=== PATIENT | female | born 1945 | race Caucasian/White ===

== ENCOUNTER 2017-01-20 06:52 | Inpatient (IN) | payer MEDICARE, OTHER ==
[~2017-01-20] VITALS: Ht 162.6 cm; Wt 66.7 kg
[~2017-01-20 06:52] MED LIST: AMIT100T PO; ESTR0.5T PO; HYDR25TA9 PO; LISI40TA PO; NAPR-682 PO; OMEG1CAP6 PO
[2017-01-20 07:28] LABS: BASO % 0 % (0-3); EOS % 0 % (0-3); HEMATOCRIT 32.5 % (36.0-47.0); HEMOGLOBIN 11.2 g/dL (12.0-15.5); LYMPH # 1.1 x10^3/uL (1.0-4.8); LYMPH % 17 % (24-48); MEAN CORPUSCULAR HEMOGLOBIN 34 pg (25-35); MEAN CORPUSCULAR HGB CONC 35 g/dL (31-37); MEAN CORPUSCULAR VOLUME 97 fL (79-100); MONO % 6 % (0-9); NEUT % 76 % (31-73); PLATELET COUNT 255 x10^3/uL (140-400); RED BLOOD COUNT 3.33 x10^6/uL (3.50-5.40); WHITE BLOOD COUNT 6.4 x10^3/uL (4.0-11.0)
[2017-01-20 07:39] LABS: PROTHROMBIN TIME PATIENT 12.4 SEC (11.7-14.0)
[2017-01-20 07:43] LABS: CALCIUM 9.1 mg/dL (8.5-10.1); CREATININE 0.8 mg/dL (0.6-1.0); GFR 70.5; POTASSIUM 3.4 mmol/L (3.5-5.1)
[2017-01-20 07:43] LABS: BILIRUBIN,URINE NEGATIVE (NEG); GLUCOSE,URINE NEGATIVE (NEG); NITRITE,URINE NEGATIVE (NEG); PH,URINE 5.5; PROTEIN,URINE NEGATIVE (NEG-TRACE); UROBILINOGEN,URINE 0.2 mg/dL (0.2 mg/dL)
[2017-01-20] MEDS ORDERED: IV NORMAL SALINE 1000ML BAG 1,000 ML IV ONE (07:45)
[2017-01-20 07:49] LABS: ALBUMIN 3.7 g/dL (3.4-5.0); MAGNESIUM 1.5 mg/dL (1.8-2.4); TOTAL BILIRUBIN 0.2 mg/dL (0.2-1.0); TOTAL PROTEIN 7.4 g/dL (6.4-8.2)
[2017-01-20 07:57] LABS: CKMB MASS 0.9 ng/mL (0.0-3.6); CREATINE KINASE 65 U/L (26-192)
--- NOTE | 2017-01-20 07:59 | RAD ---
Portable chest, 01/20/2017: History: Fall, altered level of consciousness The heart size and pulmonary vascularity are normal. There is tortuosity of the thoracic aorta. No pulmonary infiltrates are seen. There is no evidence of pleural fluid or pneumothorax. IMPRESSION: 1. Aortic ectasia. 2. No acute cardiopulmonary abnormality is detected.
[2017-01-20 08:06] LABS: BACTERIA,URINE MANY /HPF (0-FEW); RBC,URINE 0 /HPF (0-2); SQUAMOUS EPITHELIAL CELL,UR FEW /LPF; WBC,URINE 0 /HPF (0-4)
--- NOTE | 2017-01-20 08:09 | RAD ---
CT of the head without contrast, 01/20/2017: History: Hypertension, weakness There is mild cerebral atrophy. There are minimal deep white matter lucencies bilaterally compatible with chronic ischemic change. The ventricles are at the upper limits of normal in size. There is no shift of the midline structures. There is no evidence of acute intracranial hemorrhage or mass effect. IMPRESSION: 1. Minimal bilateral deep white matter lucencies compatible with chronic ischemic change. 2. No acute intracranial abnormality is detected. PQRS Compliance Statement: One or more of the following individualized dose reduction techniques were utilized for this examination: 1. Automated exposure control 2. Adjustment of the mA and/or kV according to patient size 3. Use of iterative reconstruction technique
[2017-01-20 08:21] LABS: BARBITURATES NEG (NEG); BENZODIAZEPINES NEG (NEG); CANNABINOIDS NEG (NEG); COCAINE NEG (NEG); METHADONE NEG (NEG); OPIATES NEG (NEG); PHENCYCLIDINE NEG (NEG)
--- NOTE | 2017-01-20 09:34 | PHYS DOC ---
Past Medical History Past Medical History: Hypertension Additional Past Medical Histor: HRT, sleep disorder Past Surgical History: Cholecystectomy, Hysterectomy Additional Past Surgical Histo: partial hyster Alcohol Use: Heavy Additional Information: 3 glasses of wine per day Drug Use: None Adult General Chief Complaint Chief Complaint: NEAR SYNCOPE HPI HPI Patient is a 71 year old female brought to the ED by EMS from home after a fall. Patient is confused, the history is from EMS and the patient's boyfriend, who arrived a little bit later. EMS report that the patient had gotten up and gone to the bathroom and then fell in the bedroom on the way back to the bathroom. Patient's boyfriend told me that he could hear that she wasn't walking right, it sounds like he could hear her stumbling or dragging her feet. She was walking really slow. She fell to the floor and he was not able to get her up. She was too weak. She was also confused. He called EMS. EMS stated that the patient was very reluctant to, and they had argued with her quite a bit, they really wanted her to come in because she seemed weak and altered. She insisted on getting dressed so they were on scene quite a while. On arrival, the patient is confused. She was talking about pushing about for the elevator, EMS stated she lives in a home and there is no elevator. She stated that she had left something "upstairs", EMS state she was never upstairs. She is somewhat argumentative. In fact, as EMS moved her from their cart onto the ED bed, she pointed to the TV and stated "I need the remote for that". She is a poor historian at this time. PCP Dr. Rowley; the patient was able to tell me the name of her doctor Review of Systems Review of Systems Caveat: The patient is confused and I don't believe she is able to offer accurate review of systems. Current Medications Current Medications Current Medications Medications (Trade) Dose Ordered Sig/Syed Start Time Stop Time Status Last Admin Dose Admin Sodium Chloride 1,000 ml @ 1,000 mls/hr 1X ONCE 01/20/17 07:45 01/20/17 08:44 DC 01/20/17 07:45 1,000 MLS/HR Allergies Allergies Allergies Coded Allergies Type Severity Reaction Last Updated Verified No Known Drug Allergies 01/20/17 No Physical Exam Physical Exam Constitutional: Well developed, well nourished, alert but confused, warm and dry , no acute distress HENT: Normocephalic, atraumatic, bilateral external ears normal, oropharynx dry , nose normal. [] Eyes: conjunctiva normal, no discharge. [] Neck: Normal range of motion, no stridor. [] Cardiovascular:Heart rate regular rhythm, no murmur [] Lungs & Thorax: Bilateral breath sounds clear to auscultation [] Abdomen: Bowel sounds normal, soft, no tenderness, no masses, no pulsatile masses. [] Skin: Warm, dry, no erythema, no rash. [] Extremities: No cyanosis, no clubbing, ROM intact, no edema. Right knee has some mild to moderate swelling and joint effusion, not warm, not red, mildly tender to palpation. Neurologic: Alert, normal motor function, no focal deficits noted. House Steward/Stewardess 5 over 5 and equal bilaterally. Lower extremity strength 5 over 5 and equal bilaterally. No facial asymmetry. On arrival, the patient's speech is somewhat slurred but her mouth is very dry. She has difficulty with commands so some evaluation is difficult. NIH SS score 2 She was given 1 for mild confusion and 1 for slurred speech Current Patient Data Vital Signs Vital Signs Date Time Temp Pulse Resp B/P (MAP) Pulse Ox O2 Delivery O2 Flow Rate FiO2 01/20/17 08:00 108 96 01/20/17 06:59 98.1 18 139/80 (99) Room Air 98.1 Lab Values Laboratory Tests Test 01/20/17 07:05 01/20/17 07:25 White Blood Count 6.4 x10^3/uL (4.0-11.0) Red Blood Count 3.33 x10^6/uL (3.50-5.40) L Hemoglobin 11.2 g/dL (12.0-15.5) L Hematocrit 32.5 % (36.0-47.0) L Mean Corpuscular Volume 97 fL (79-100) Mean Corpuscular Hemoglobin 34 pg (25-35) Mean Corpuscular Hemoglobin Concent 35 g/dL (31-37) Red Cell Distribution Width 13.0 % (11.5-14.5) Platelet Count 255 x10^3/uL (140-400) Neutrophils (%) (Auto) 76 % (31-73) H Lymphocytes (%) (Auto) 17 % (24-48) L Monocytes (%) (Auto) 6 % (0-9) Eosinophils (%) (Auto) 0 % (0-3) Basophils (%) (Auto) 0 % (0-3) Neutrophils # (Auto) 4.9 x10^3uL (1.8-7.7) Lymphocytes # (Auto) 1.1 x10^3/uL (1.0-4.8) Monocytes # (Auto) 0.4 x10^3/uL (0.0-1.1) Eosinophils # (Auto) 0.0 x10^3/uL (0.0-0.7) Basophils # (Auto) 0.0 x10^3/uL (0.0-0.2) Prothrombin Time 12.4 SEC (11.7-14.0) Prothrombin Time INR 1.0 (0.8-1.1) PTT 33 SEC (24-38) Sodium Level 133 mmol/L (136-145) L Potassium Level 3.4 mmol/L (3.5-5.1) L Chloride Level 96 mmol/L (98-107) L Carbon Dioxide Level 24 mmol/L (21-32) Anion Gap 13 (6-14) Blood Urea Nitrogen 16 mg/dL (7-20) Creatinine 0.8 mg/dL (0.6-1.0) Estimated GFR (Cockcroft-Gault) 70.5 BUN/Creatinine Ratio 20 (6-20) Glucose Level 109 mg/dL (70-99) H Calcium Level 9.1 mg/dL (8.5-10.1) Magnesium Level 1.5 mg/dL (1.8-2.4) L Total Bilirubin 0.2 mg/dL (0.2-1.0) Aspartate Amino Transferase (AST) 20 U/L (15-37) Alanine Aminotransferase (ALT) 21 U/L (14-59) Alkaline Phosphatase 82 U/L (46-116) Creatine Kinase 65 U/L (26-192) Creatine Kinase MB (Mass) 0.9 ng/mL (0.0-3.6) Creatine Kinase MB Relative Index % (0-4) Troponin I Quantitative < 0.017 ng/mL (0.000-0.055) HS-Qun-X-Type Natriuretic Peptide 88 pg/mL (0-124) Total Protein 7.4 g/dL (6.4-8.2) Albumin 3.7 g/dL (3.4-5.0) Albumin/Globulin Ratio 1.0 (1.0-1.7) Ethyl Alcohol Level < 10 mg/dL (0-10) Urine Collection Type Unknown Urine Color Yellow Urine Clarity Clear Urine pH 5.5 Urine Specific [place] 1.015 Urine Protein Negative mg/dL (NEG-TRACE) Urine Glucose (UA) Negative mg/dL (NEG) Urine Ketones (Stick) Negative mg/dL (NEG) Urine Blood Negative (NEG) Urine Nitrite Negative (NEG) Urine Bilirubin Negative (NEG) Urine Urobilinogen Dipstick 0.2 mg/dL (0.2 mg/dL) Urine Leukocyte Esterase Negative (NEG) Urine RBC 0 /HPF (0-2) Urine WBC 0 /HPF (0-4) Urine Squamous Epithelial Cells Few /LPF Urine Bacteria Many /HPF (0-FEW) Urine Opiates Screen Neg (NEG) Urine Methadone Screen Neg (NEG) Urine Barbiturates Neg (NEG) Urine Phencyclidine Screen Neg (NEG) Urine Amphetamine/Methamphetamine Neg (NEG) Urine Benzodiazepines Screen Neg (NEG) Urine Cocaine Screen Neg (NEG) Urine Cannabinoids Screen Neg (NEG) Urine Ethyl Alcohol Pos (NEG) Laboratory Tests 01/20/17 07:05 Laboratory Tests 01/20/17 07:05 EKG EKG 12-lead EKG read by me. Sinus rhythm. Heart rate 108. Sinus tachycardia. There are no acute ST or T wave changes indicative of ischemia or infarction. No [id number][] Radiology/Procedures Radiology/Procedures One view portable chest x-ray read by the radiologist. No acute findings. CT scan of the head read by the radiologist. Chronic ischemic change. No acute abnormality.[] Course & Med Decision Making Course & Med Decision Making Pertinent Labs and Imaging studies reviewed. (See chart for details) 71-year-old female brought by EMS from home after a fall and demonstrating some confusion without focal findings on arrival. Patient does appear to be dehydrated, her mouth is very dry. We will check some labs, CT, chest x-ray, give her a liter of IV fluids. Labs are all relatively unremarkable. Serum alcohol is less than 10 but her UDS was positive for alcohol, but she is not acutely intoxicated. Urinalysis negative for UTI. CT scan negative for acute findings. I went back to revisited the patient after her liter of fluids. Her boyfriend is at the bedside and contribute significantly to the history. The patient seems much less confused. She is no longer slurring her speech. She doesn't remember what happened this morning, and continues to be argumentative about whether or not she fell, what happened, how she got here, and certainly would prefer not to be admitted. However, I'm concerned that the patient had an episode of significant confusion related to a fall and although better, her boyfriend states she is not at her mental baseline. She may have had a TIA or CVA, although she demonstrates improvement at this time. The patient likely woke with her symptoms, since she got up and went to the bathroom and was coming back to bed when her fall occurred. There is no history to suggest that it started just before she came in, we are not able to establish a timeline, so we were not able to give consideration for thrombolytics. I discussed the patient with Dr. Dasilva, hospitalist. She will admit the patient. I wrote bridge orders. [] Dragon Disclaimer Dragon Disclaimer This electronic medical record was generated, in whole or in part, using a voice recognition dictation system. Departure Departure Impression: Primary Impression: TIA (transient ischemic attack) Additional Impressions: Confusion Weakness Fall Disposition: 09 ADMITTED INPATIENT Admitting Physician: Roxanna Dasilva Condition: IMPROVED Referrals: NATALIE ROWLEY MD (PCP) Problem Qualifiers CAROLE SANDERS MD Jan 20, 2017 09:34
[2017-01-20 11:03] VITALS: BP 130/75
[2017-01-20] MEDS ORDERED: TERB250T PO (11:18)
[2017-01-20] MEDS ORDERED: ATOR20TA58 PO (11:18)
[2017-01-20] MEDS ORDERED: ASPI-482 PO (11:18)
--- NOTE | 2017-01-20 11:51 | EKG ---
[facility] [address] [place] [address] Test Date: 2017-01-20 Test Time: 07:14:24 Pat Name: RAULITO DOS SANTOS Department: Room: [facility] Gender: F Customs Compliance Director: JEFFREY : 1945 Requested By: CAROLE SANDERS Order Number: [id number] Reading MD: Reymundo Baxter Measurements Intervals [place] Rate: 108 P: 90 HI: 202 QRS: 40 QRSD: 88 T: 13 QT: 326 QTc: 441 Interpretive Statements SINUS TACHYCARDIA PROLONGED HI INTERVAL QRS(T) CONTOUR ABNORMALITY CONSIDER INFERIOR MYOCARDIAL DAMAGE ABNORMAL ECG RI6.01 No previous ECG available for comparison Electronically Signed On 02-08-2017 17:05:00 CDT by Reymundo Baxter
[2017-01-20 12:17] VITALS: BP 130/75
--- NOTE | 2017-01-20 14:40 | PDOC2 ---
NEUROLOGY CONSULT Date of Admission Date of Admission Full Report Dictated DATE: 01/20/17 TIME: 14:38 Current Medications Current Medications Current Medications Sodium Chloride 1,000 ml @ 1,000 mls/hr 1X ONCE IV Last administered on t 07:45; Start 01/20/17 at 07:45; Stop 01/20/17 at 08:44; Status DC Active Scripts Active Reported Atorvastatin Calcium 20 Mg Tablet 20 Mg PO HS Lamisil (Terbinafine Hcl) 250 Mg Tablet 1 Tab PO DAILY Aspir 81 (Aspirin) 81 Mg Tablet.dr 1 Tab PO DAILY Fish Oil 1,000 Mg Capsule ([place]-3 Fatty Acids/Fish Oil) 1 Each Capsule 1 Each PO Anaprox Ds (Naproxen Sodium) 550 Mg Tablet 1 Tab PO BID Amitriptyline Hcl 100 Mg Tablet 1 Tab PO QHS Estradiol 0.5 Mg Tablet 0.5 Mg PO Hydrochlorothiazide Tablet (Hydrochlorothiazide) 25 Mg Tablet 1 Tab PO DAILY Lisinopril 40 Mg Tablet 1 Tab PO DAILY Allergies Allergies: Coded Allergies: No Known Drug Allergies (Unverified , 01/20/17) Vitals VITALS Vital Signs Date Time Temp Pulse Resp B/P (MAP) Pulse Ox O2 Delivery O2 Flow Rate FiO2 01/20/17 12:17 97.5 95 16 130/75 (93) 97 Room Air 97.5 Labs Labs Laboratory Tests Test 01/20/17 07:05 01/20/17 07:25 White Blood Count 6.4 x10^3/uL (4.0-11.0) Red Blood Count 3.33 x10^6/uL (3.50-5.40) Hemoglobin 11.2 g/dL (12.0-15.5) Hematocrit 32.5 % (36.0-47.0) Mean Corpuscular Volume 97 fL (79-100) Mean Corpuscular Hemoglobin 34 pg (25-35) Mean Corpuscular Hemoglobin Concent 35 g/dL (31-37) Red Cell Distribution Width 13.0 % (11.5-14.5) Platelet Count 255 x10^3/uL (140-400) Neutrophils (%) (Auto) 76 % (31-73) Lymphocytes (%) (Auto) 17 % (24-48) Monocytes (%) (Auto) 6 % (0-9) Eosinophils (%) (Auto) 0 % (0-3) Basophils (%) (Auto) 0 % (0-3) Neutrophils # (Auto) 4.9 x10^3uL (1.8-7.7) Lymphocytes # (Auto) 1.1 x10^3/uL (1.0-4.8) Monocytes # (Auto) 0.4 x10^3/uL (0.0-1.1) Eosinophils # (Auto) 0.0 x10^3/uL (0.0-0.7) Basophils # (Auto) 0.0 x10^3/uL (0.0-0.2) Prothrombin Time 12.4 SEC (11.7-14.0) Prothromb Time International Ratio 1.0 (0.8-1.1) Activated Partial Thromboplast Time 33 SEC (24-38) Sodium Level 133 mmol/L (136-145) Potassium Level 3.4 mmol/L (3.5-5.1) Chloride Level 96 mmol/L (98-107) Carbon Dioxide Level 24 mmol/L (21-32) Anion Gap 13 (6-14) Blood Urea Nitrogen 16 mg/dL (7-20) Creatinine 0.8 mg/dL (0.6-1.0) Estimated GFR (Cockcroft-Gault) 70.5 BUN/Creatinine Ratio 20 (6-20) Glucose Level 109 mg/dL (70-99) Calcium Level 9.1 mg/dL (8.5-10.1) Magnesium Level 1.5 mg/dL (1.8-2.4) Total Bilirubin 0.2 mg/dL (0.2-1.0) Aspartate Amino Transf (AST/SGOT) 20 U/L (15-37) Alanine Aminotransferase (ALT/SGPT) 21 U/L (14-59) Alkaline Phosphatase 82 U/L (46-116) Creatine Kinase 65 U/L (26-192) Creatine Kinase MB (Mass) 0.9 ng/mL (0.0-3.6) Creatine Kinase MB Relative Index % (0-4) Troponin I Quantitative < 0.017 ng/mL (0.000-0.055) QB-[id number]-[id number]-Type Natriuretic Peptide 88 pg/mL (0-124) Total Protein 7.4 g/dL (6.4-8.2) Albumin 3.7 g/dL (3.4-5.0) Albumin/Globulin Ratio 1.0 (1.0-1.7) Ethyl Alcohol Level < 10 mg/dL (0-10) Urine Collection Type Unknown Urine Color Yellow Urine Clarity Clear Urine pH 5.5 Urine Specific [place] 1.015 Urine Protein Negative mg/dL (NEG-TRACE) Urine Glucose (UA) Negative mg/dL (NEG) Urine Ketones (Stick) Negative mg/dL (NEG) Urine Blood Negative (NEG) Urine Nitrite Negative (NEG) Urine Bilirubin Negative (NEG) Urine Urobilinogen Dipstick 0.2 mg/dL (0.2 mg/dL) Urine Leukocyte Esterase Negative (NEG) Urine RBC 0 /HPF (0-2) Urine WBC 0 /HPF (0-4) Urine Squamous Epithelial Cells Few /LPF Urine Bacteria Many /HPF (0-FEW) Urine Opiates Screen Neg (NEG) Urine Methadone Screen Neg (NEG) Urine Barbiturates Neg (NEG) Urine Phencyclidine Screen Neg (NEG) Urine Amphetamine/Methamphetamine Neg (NEG) Urine Benzodiazepines Screen Neg (NEG) Urine Cocaine Screen Neg (NEG) Urine Cannabinoids Screen Neg (NEG) Urine Ethyl Alcohol Pos (NEG) Laboratory Tests Test 01/20/17 07:05 01/20/17 07:25 White Blood Count 6.4 x10^3/uL (4.0-11.0) Red Blood Count 3.33 x10^6/uL (3.50-5.40) Hemoglobin 11.2 g/dL (12.0-15.5) Hematocrit 32.5 % (36.0-47.0) Mean Corpuscular Volume 97 fL (79-100) Mean Corpuscular Hemoglobin 34 pg (25-35) Mean Corpuscular Hemoglobin Concent 35 g/dL (31-37) Red Cell Distribution Width 13.0 % (11.5-14.5) Platelet Count 255 x10^3/uL (140-400) Neutrophils (%) (Auto) 76 % (31-73) Lymphocytes (%) (Auto) 17 % (24-48) Monocytes (%) (Auto) 6 % (0-9) Eosinophils (%) (Auto) 0 % (0-3) Basophils (%) (Auto) 0 % (0-3) Neutrophils # (Auto) 4.9 x10^3uL (1.8-7.7) Lymphocytes # (Auto) 1.1 x10^3/uL (1.0-4.8) Monocytes # (Auto) 0.4 x10^3/uL (0.0-1.1) Eosinophils # (Auto) 0.0 x10^3/uL (0.0-0.7) Basophils # (Auto) 0.0 x10^3/uL (0.0-0.2) Prothrombin Time 12.4 SEC (11.7-14.0) Prothromb Time International Ratio 1.0 (0.8-1.1) Activated Partial Thromboplast Time 33 SEC (24-38) Sodium Level 133 mmol/L (136-145) Potassium Level 3.4 mmol/L (3.5-5.1) Chloride Level 96 mmol/L (98-107) Carbon Dioxide Level 24 mmol/L (21-32) Anion Gap 13 (6-14) Blood Urea Nitrogen 16 mg/dL (7-20) Creatinine 0.8 mg/dL (0.6-1.0) Estimated GFR (Cockcroft-Gault) 70.5 BUN/Creatinine Ratio 20 (6-20) Glucose Level 109 mg/dL (70-99) Calcium Level 9.1 mg/dL (8.5-10.1) Magnesium Level 1.5 mg/dL (1.8-2.4) Total Bilirubin 0.2 mg/dL (0.2-1.0) Aspartate Amino Transf (AST/SGOT) 20 U/L (15-37) Alanine Aminotransferase (ALT/SGPT) 21 U/L (14-59) Alkaline Phosphatase 82 U/L (46-116) Creatine Kinase 65 U/L (26-192) Creatine Kinase MB (Mass) 0.9 ng/mL (0.0-3.6) Creatine Kinase MB Relative Index % (0-4) Troponin I Quantitative < 0.017 ng/mL (0.000-0.055) [place]-Sfv-[id number]-Type Natriuretic Peptide 88 pg/mL (0-124) Total Protein 7.4 g/dL (6.4-8.2) Albumin 3.7 g/dL (3.4-5.0) Albumin/Globulin Ratio 1.0 (1.0-1.7) Ethyl Alcohol Level < 10 mg/dL (0-10) Urine Collection Type Unknown Urine Color Yellow Urine Clarity Clear Urine pH 5.5 Urine Specific [place] 1.015 Urine Protein Negative mg/dL (NEG-TRACE) Urine Glucose (UA) Negative mg/dL (NEG) Urine Ketones (Stick) Negative mg/dL (NEG) Urine Blood Negative (NEG) Urine Nitrite Negative (NEG) Urine Bilirubin Negative (NEG) Urine Urobilinogen Dipstick 0.2 mg/dL (0.2 mg/dL) Urine Leukocyte Esterase Negative (NEG) Urine RBC 0 /HPF (0-2) Urine WBC 0 /HPF (0-4) Urine Squamous Epithelial Cells Few /LPF Urine Bacteria Many /HPF (0-FEW) Urine Opiates Screen Neg (NEG) Urine Methadone Screen Neg (NEG) Urine Barbiturates Neg (NEG) Urine Phencyclidine Screen Neg (NEG) Urine Amphetamine/Methamphetamine Neg (NEG) Urine Benzodiazepines Screen Neg (NEG) Urine Cocaine Screen Neg (NEG) Urine Cannabinoids Screen Neg (NEG) Urine Ethyl Alcohol Pos (NEG) Assessment/Plan Assessment/Plan Patient is a 71-year-old woman who fell down on her way back from the bathroom in the middle of the night. She's been experiencing more pain of the right knee and attributes the fall to poor balance. It's reported by paramedics and in the emergency room that she was confused. Currently she has diminished attention and concentration which could be encephalopathy from the fall or possibly a nondominant hemisphere stroke. I did not see focal numbness or weakness. She does have impaired balance and gait. CT scan of the brain was not revealing. I will obtain an MRI brain as well as blood work to look into treatable causes of cognitive decline. I'll consult physical therapy. MARCOS COTTO MD Jan 20, 2017 14:40
[2017-01-20 15:08] LABS: FREE T4 0.77 ng/dL (0.76-1.46)
[2017-01-20 15:21] VITALS: BP 113/65
--- NOTE | 2017-01-20 16:26 | PDOC1 ---
History and Physical Date of Admission Date of Admission 01/20/17 Identification/Chief Complaint Chief Complaint fall, confusion Problems: Source Source: Chart review, Patient History of Present Illness History of Present Illness HPI HPI Patient is a 71 year old female brought to the ED by EMS from home after a fall this morning and possible confusion. pt said she got up at about 3am to the bathroom as usually, got out of bathroom , went to bed, then fell 2/2 not seeing well, could not get up, yelled for help and her bf saw her on the floor and helped her back to bed. She denies syncope, she said not sure hit her left head or not, but denies headache, or any neurologic deficit. When they got up later, bf found her confused, not walking right and called EMS. as per ERP, they fought for while and eventually agreed to come to hosp. Pt said her right knee has chronic OA and more pain which cause her cannot walk well. as per ERP, On arrival, the patient is confused. She was talking about pushing about for the elevator, EMS stated she lives in a home and there is no elevator. She stated that she had left something "upstairs", EMS state she was never upstairs. She is somewhat argumentative. In fact, as EMS moved her from their cart onto the ED bed, she pointed to the TV and stated "I need the remote for that" when i saw pt on 6 floor, pt looks not confused, altho poor historian, also has mild aphagia, pt said it is because she has dry mouth. Past Medical History Past Medical History Hypertension Additional Past Medical Histor: HRT, sleep disorder Past Surgical History Past Surgical History: Cholecystectomy, Hysterectomy Family History Family History: Hypertension Social History Smoke: <1 pack per day ALCOHOL: heavy (pt said drinks at lease 3 times a week, denies daily, said only 100cc wine or vodka each time) Current Problem List Problem List Problems Medical Problems: (1) Confusion Status: Acute (2) Fall Status: Acute (3) TIA (transient ischemic attack) Status: Acute (4) Weakness Status: Acute Current Medications Current Medications Current Medications Medications (Trade) Dose Ordered Sig/Syed Start Time Stop Time Status Last Admin Dose Admin Sodium Chloride 1,000 ml @ 1,000 mls/hr 1X ONCE 01/20/17 07:45 01/20/17 08:44 DC 01/20/17 07:45 1,000 MLS/HR Allergies Allergies Allergies Coded Allergies Type Severity Reaction Last Updated Verified No Known Drug Allergies 01/20/17 No ROS Review of System CONSTITUTIONAL: No fever or chills EYES: No recent changes SKIN: No rash or itching CARDIOVASCULAR: No chest pain, syncope, palpitations, or edema RESPIRATORY: No SOB or cough GASTROINTESTINAL: No nausea, vomiting or abdominal pain NEUROLOGICAL: No headaches or weakness ENDOCRINE: No cold or heat intolerance GENITOURINARY: No urgency or frequency of urination MUSCULOSKELETAL: No back pain or joint pain LYMPHATICS: No enlarged lymph nodes PSYCHIATRIC: No anxiety or depression Physical Exam Physical Exam GEN.: No apparent distress. Alert and oriented. HEENT: Head is normocephalic, atraumatic NECK: Supple. LUNGS: Clear to auscultation. HEART: RRR, S1, S2 present. Peripheral pulses intact ABDOMEN: Soft, nontender. Positive bowel sounds. EXTREMITIES: Without any cyanosis. mild aphagia, strength normal and symmetric NEUROLOGIC: Normal speech, normal tone PSYCHIATRIC: Normal affect, normal mood. SKIN: No ulcerations Vitals Vitals Vital Signs Date Time Temp Pulse Resp B/P (MAP) Pulse Ox O2 Delivery O2 Flow Rate FiO2 01/20/17 15:21 98.1 106 16 113/65 (81) 95 98.1 01/20/17 12:17 Room Air Labs Labs Laboratory Tests Test 01/20/17 07:05 01/20/17 07:25 White Blood Count 6.4 x10^3/uL (4.0-11.0) Red Blood Count 3.33 x10^6/uL (3.50-5.40) Hemoglobin 11.2 g/dL (12.0-15.5) Hematocrit 32.5 % (36.0-47.0) Mean Corpuscular Volume 97 fL (79-100) Mean Corpuscular Hemoglobin 34 pg (25-35) Mean Corpuscular Hemoglobin Concent 35 g/dL (31-37) Red Cell Distribution Width 13.0 % (11.5-14.5) Platelet Count 255 x10^3/uL (140-400) Neutrophils (%) (Auto) 76 % (31-73) Lymphocytes (%) (Auto) 17 % (24-48) Monocytes (%) (Auto) 6 % (0-9) Eosinophils (%) (Auto) 0 % (0-3) Basophils (%) (Auto) 0 % (0-3) Neutrophils # (Auto) 4.9 x10^3uL (1.8-7.7) Lymphocytes # (Auto) 1.1 x10^3/uL (1.0-4.8) Monocytes # (Auto) 0.4 x10^3/uL (0.0-1.1) Eosinophils # (Auto) 0.0 x10^3/uL (0.0-0.7) Basophils # (Auto) 0.0 x10^3/uL (0.0-0.2) Prothrombin Time 12.4 SEC (11.7-14.0) Prothromb Time International Ratio 1.0 (0.8-1.1) Activated Partial Thromboplast Time 33 SEC (24-38) Sodium Level 133 mmol/L (136-145) Potassium Level 3.4 mmol/L (3.5-5.1) Chloride Level 96 mmol/L (98-107) Carbon Dioxide Level 24 mmol/L (21-32) Anion Gap 13 (6-14) Blood Urea Nitrogen 16 mg/dL (7-20) Creatinine 0.8 mg/dL (0.6-1.0) Estimated GFR (Cockcroft-Gault) 70.5 BUN/Creatinine Ratio 20 (6-20) Glucose Level 109 mg/dL (70-99) Calcium Level 9.1 mg/dL (8.5-10.1) Magnesium Level 1.5 mg/dL (1.8-2.4) Total Bilirubin 0.2 mg/dL (0.2-1.0) Aspartate Amino Transf (AST/SGOT) 20 U/L (15-37) Alanine Aminotransferase (ALT/SGPT) 21 U/L (14-59) Alkaline Phosphatase 82 U/L (46-116) Creatine Kinase 65 U/L (26-192) Creatine Kinase MB (Mass) 0.9 ng/mL (0.0-3.6) Creatine Kinase MB Relative Index % (0-4) Troponin I Quantitative < 0.017 ng/mL (0.000-0.055) GX-Bmc-V-Type Natriuretic Peptide 88 pg/mL (0-124) Total Protein 7.4 g/dL (6.4-8.2) Albumin 3.7 g/dL (3.4-5.0) Albumin/Globulin Ratio 1.0 (1.0-1.7) Thyroid Stimulating Hormone (TSH) 6.198 uIU/mL (0.358-3.74) Free Thyroxine 0.77 ng/dL (0.76-1.46) Ethyl Alcohol Level < 10 mg/dL (0-10) Urine Collection Type Unknown Urine Color Yellow Urine Clarity Clear Urine pH 5.5 Urine Specific [place] 1.015 Urine Protein Negative mg/dL (NEG-TRACE) Urine Glucose (UA) Negative mg/dL (NEG) Urine Ketones (Stick) Negative mg/dL (NEG) Urine Blood Negative (NEG) Urine Nitrite Negative (NEG) Urine Bilirubin Negative (NEG) Urine Urobilinogen Dipstick 0.2 mg/dL (0.2 mg/dL) Urine Leukocyte Esterase Negative (NEG) Urine RBC 0 /HPF (0-2) Urine WBC 0 /HPF (0-4) Urine Squamous Epithelial Cells Few /LPF Urine Bacteria Many /HPF (0-FEW) Urine Opiates Screen Neg (NEG) Urine Methadone Screen Neg (NEG) Urine Barbiturates Neg (NEG) Urine Phencyclidine Screen Neg (NEG) Urine Amphetamine/Methamphetamine Neg (NEG) Urine Benzodiazepines Screen Neg (NEG) Urine Cocaine Screen Neg (NEG) Urine Cannabinoids Screen Neg (NEG) Urine Ethyl Alcohol Pos (NEG) Laboratory Tests Test 01/20/17 07:05 01/20/17 07:25 White Blood Count 6.4 x10^3/uL (4.0-11.0) Red Blood Count 3.33 x10^6/uL (3.50-5.40) Hemoglobin 11.2 g/dL (12.0-15.5) Hematocrit 32.5 % (36.0-47.0) Mean Corpuscular Volume 97 fL (79-100) Mean Corpuscular Hemoglobin 34 pg (25-35) Mean Corpuscular Hemoglobin Concent 35 g/dL (31-37) Red Cell Distribution Width 13.0 % (11.5-14.5) Platelet Count 255 x10^3/uL (140-400) Neutrophils (%) (Auto) 76 % (31-73) Lymphocytes (%) (Auto) 17 % (24-48) Monocytes (%) (Auto) 6 % (0-9) Eosinophils (%) (Auto) 0 % (0-3) Basophils (%) (Auto) 0 % (0-3) Neutrophils # (Auto) 4.9 x10^3uL (1.8-7.7) Lymphocytes # (Auto) 1.1 x10^3/uL (1.0-4.8) Monocytes # (Auto) 0.4 x10^3/uL (0.0-1.1) Eosinophils # (Auto) 0.0 x10^3/uL (0.0-0.7) Basophils # (Auto) 0.0 x10^3/uL (0.0-0.2) Prothrombin Time 12.4 SEC (11.7-14.0) Prothromb Time International Ratio 1.0 (0.8-1.1) Activated Partial Thromboplast Time 33 SEC (24-38) Sodium Level 133 mmol/L (136-145) Potassium Level 3.4 mmol/L (3.5-5.1) Chloride Level 96 mmol/L (98-107) Carbon Dioxide Level 24 mmol/L (21-32) Anion Gap 13 (6-14) Blood Urea Nitrogen 16 mg/dL (7-20) Creatinine 0.8 mg/dL (0.6-1.0) Estimated GFR (Cockcroft-Gault) 70.5 BUN/Creatinine Ratio 20 (6-20) Glucose Level 109 mg/dL (70-99) Calcium Level 9.1 mg/dL (8.5-10.1) Magnesium Level 1.5 mg/dL (1.8-2.4) Total Bilirubin 0.2 mg/dL (0.2-1.0) Aspartate Amino Transf (AST/SGOT) 20 U/L (15-37) Alanine Aminotransferase (ALT/SGPT) 21 U/L (14-59) Alkaline Phosphatase 82 U/L (46-116) Creatine Kinase 65 U/L (26-192) Creatine Kinase MB (Mass) 0.9 ng/mL (0.0-3.6) Creatine Kinase MB Relative Index % (0-4) Troponin I Quantitative < 0.017 ng/mL (0.000-0.055) JB-Gvr-I-Type Natriuretic Peptide 88 pg/mL (0-124) Total Protein 7.4 g/dL (6.4-8.2) Albumin 3.7 g/dL (3.4-5.0) Albumin/Globulin Ratio 1.0 (1.0-1.7) Thyroid Stimulating Hormone (TSH) 6.198 uIU/mL (0.358-3.74) Free Thyroxine 0.77 ng/dL (0.76-1.46) Ethyl Alcohol Level < 10 mg/dL (0-10) Urine Collection Type Unknown Urine Color Yellow Urine Clarity Clear Urine pH 5.5 Urine Specific [place] 1.015 Urine Protein Negative mg/dL (NEG-TRACE) Urine Glucose (UA) Negative mg/dL (NEG) Urine Ketones (Stick) Negative mg/dL (NEG) Urine Blood Negative (NEG) Urine Nitrite Negative (NEG) Urine Bilirubin Negative (NEG) Urine Urobilinogen Dipstick 0.2 mg/dL (0.2 mg/dL) Urine Leukocyte Esterase Negative (NEG) Urine RBC 0 /HPF (0-2) Urine WBC 0 /HPF (0-4) Urine Squamous Epithelial Cells Few /LPF Urine Bacteria Many /HPF (0-FEW) Urine Opiates Screen Neg (NEG) Urine Methadone Screen Neg (NEG) Urine Barbiturates Neg (NEG) Urine Phencyclidine Screen Neg (NEG) Urine Amphetamine/Methamphetamine Neg (NEG) Urine Benzodiazepines Screen Neg (NEG) Urine Cocaine Screen Neg (NEG) Urine Cannabinoids Screen Neg (NEG) Urine Ethyl Alcohol Pos (NEG) VTE Prophylaxis Ordered VTE Prophylaxis Devices: Yes VTE Pharmacological Prophylaxi: Yes Assessment/Plan Assessment/Plan AMS, confusion mild, seems resolved, 2/2 possible TIA or stroke with mild aphagia now fall right knee pain with OA htn alcoholism likely chronic unsteady gait hypokalemia hypomagnesemia plan: neuro consult brain MRI cont home meds, hold hctz replete K, mag neuro check q4h check vitb12, FA dvt ppx PTOT PAXTON ROGERS MD Jan 20, 2017 16:26
[2017-01-20] MEDS ORDERED: MORPHINE SULFATE 2 MG/ML DISP.SYRIN. IV PRN (16:30)
[2017-01-20] MEDS ORDERED: DOCUSATE SODIUM 100 MG CAPSULE. PO PRN (16:30)
[2017-01-20] MEDS ORDERED: MAGNESIUM SULFATE 2GM 50 ML IV ONE (16:30)
[2017-01-20] MEDS ORDERED: POTASSIUM CHLORIDE 20 MEQ TABLET.ER. PO ONE (16:30)
[2017-01-20] MEDS ORDERED: ONDANSETRON PF 4 MG/2 ML VIAL. IV PRN (16:30)
[2017-01-20] MEDS ORDERED: hydrALAZINE 20 MG/ML VIAL. IVP PRN (16:30)
[2017-01-20] MEDS ORDERED: traMADol 50 MG TABLET PO PRN (16:30)
[2017-01-20] MEDS ORDERED: ACETAMINOPHEN 325 MG TABLET. PO PRN (16:30)
[2017-01-20] MEDS: ENOXAPARIN 40 MG/0.4 ML SYRINGE. SQ SCH ×2 (17:00→17:09)
[2017-01-20] MEDS: FOLIC ACID 1 MG TABLET. PO SCH (17:07)
[2017-01-20] MEDS: LISINOPRIL 40 MG TABLET. PO SCH (17:07)
[2017-01-20] MEDS: THIAMINE 100 MG TABLET. PO SCH (17:07)
[2017-01-20] MEDS: OMEGA-3 FATTY ACIDS/FISH OIL 1,000 MG CAPSULE. PO SCH (17:08)
[2017-01-20] MEDS: TERBINAFINE 250 MG TABLET. PO SCH (17:08)
[2017-01-20] MEDS: ASPIRIN ENTERIC COATED 81 MG TABLET.DR. PO SCH (17:08)
[2017-01-20 19:00] VITALS: BP 127/71
[2017-01-20] MEDS: AMITRIPTYLINE HCL 50 MG TABLET PO SCH (21:39)
[2017-01-20] MEDS: ATORVASTATIN CALCIUM 20 MG TABLET PO SCH (21:39)
[2017-01-20 23:00] VITALS: BP 148/82
[2017-01-21 03:00] VITALS: BP 122/72
[2017-01-21 06:03] LABS: BASO % 1 % (0-3); EOS % 3 % (0-3); HEMATOCRIT 31.3 % (36.0-47.0); HEMOGLOBIN 10.8 g/dL (12.0-15.5); LYMPH # 2.1 x10^3/uL (1.0-4.8); LYMPH % 29 % (24-48); MEAN CORPUSCULAR HEMOGLOBIN 34 pg (25-35); MEAN CORPUSCULAR HGB CONC 34 g/dL (31-37); MEAN CORPUSCULAR VOLUME 98 fL (79-100); MONO % 9 % (0-9); NEUT % 59 % (31-73); PLATELET COUNT 262 x10^3/uL (140-400); RED BLOOD COUNT 3.21 x10^6/uL (3.50-5.40); RED CELL DISTRIBUTION WIDTH 13.3 % (11.5-14.5); WHITE BLOOD COUNT 7.3 x10^3/uL (4.0-11.0)
[2017-01-21 06:42] LABS: CALCIUM 8.6 mg/dL (8.5-10.1); CREATININE 0.9 mg/dL (0.6-1.0); GFR 61.5; POTASSIUM 3.9 mmol/L (3.5-5.1)
[2017-01-21 07:04] VITALS: BP 138/72
--- NOTE | 2017-01-21 07:58 | CONS ---
DATE OF CONSULTATION: 01/20/2017 REFERRING PHYSICIAN: Radha Dasilva M.D. REASON FOR CONSULTATION: TIA with the fall. HISTORY OF PRESENT ILLNESS: The patient is a 71-year-old woman who presented to the Emergency Room at [facility] after she fell on the night. She was brought to the Emergency Department by EMS. She was confused in the Emergency Room. Her significant other with whom she has lived for over 4 years, arrived later to the Emergency Room. She had risen to go to the bathroom in the middle of the night and fell. This occurred on the way back to the bed from the bathroom. He could hear that she was not walking right, sounded like she was stumbling or dragging her feet. Her walking was slow. She fell to the floor and could not get up and was too weak. EMS had to argue with her to get her to come to the hospital. In the Emergency Room, she still appeared confused. She states that her thinking and cognition has been normal. She remembers the fall and she does not believe she had a loss of consciousness. She states for the last 3 or 4 days, her right knee has been very painful and making it difficult to walk. She states she has been on the sleeping medicine for a long time, so this has not changed. She did start an antifungal oral medication a week ago so this is the only change in her regimen. She denies having memory loss or confusion. She does not complain of any headache. She does not complain of any weakness or numbness. PAST MEDICAL HISTORY: 1. Hypertension. 2. Hormone replacement therapy. 3. Sleep disorder for which she is on medicine. 4. Cholecystectomy. 5. Hysterectomy. ALLERGIES: No known allergies to drugs. MEDICATIONS: Prior admission amitriptyline 100 mg at night, aspirin 81 mg, atorvastatin 20 mg, estradiol 0.5 mg, hydrochlorothiazide, lisinopril 40 mg, naproxen sodium 550 mg twice per day, omega 3 fatty acids and Lamisil 250 mg daily. FAMILY HISTORY: Her mother with metastatic lung cancer. Her father with congestive heart failure. One of her brothers at 43 years in a motor vehicle accident, the other at 46 years after he was fatally beaten up. SOCIAL HISTORY: She has been and either or on 4 occasions. She has been with her current boyfriend for 4-5 years. She does drink three glasses of wine nightly. REVIEW OF SYSTEMS: She does not have a headache. She denies any change of vision or hearing. She does not believe she has any cognitive changes. She does not complain of nose or sinus trouble. She has had no trouble with speech or language. She occasionally does seem to swallow things so they go under lungs and she coughs. She has not had chest pain or shortness of breath. There has been no abdominal pain. She does have severe right knee pain which is impairing her walking. She has not had any fever or rash. She does occasionally have constipation or diarrhea, but sometimes her bowels are normal. No genitourinary complaints, but does seem to get up at night once twice to go to the bathroom. She does not complain of any numbness or focal weakness. She does not complain of bruising, bleeding or swelling. She denies any psychiatric concerns. PHYSICAL EXAMINATION: VITAL SIGNS: The blood pressure was 130/75, pulse 95, respirations 16, temperature 97.5 degrees Fahrenheit. Oximetry was 97% on room air. Her weight was 147 pounds, height 64 inches calculated body mass index of 25.2. GENERAL: She was alert and awake: She cooperated fully for the exam. She was oriented to place, month and year. She also knew the date. Attention and concentration did appear intact. She had difficulty grasping the ____ and transferring it to both sides of her body. Example would be rapid alternating movements, [id number] and [id number]. She appeared well groomed and well nourished. Examination of the cranial nerves revealed visual escudero were full to confrontation. Extraocular movements were intact. The eyes were conjugate. Pursuit movements were smooth and saccadic eye movements were without dysmetria. Pupils were 3 mm and reactive. Funduscopic exam did not reveal papilledema, exudate or hemorrhage. There were spontaneous venous pulsations present. Facial sensation was intact bilaterally. The muscles of mastication and facial expression were powerful symmetrically. Hearing was intact to finger rub. The palate arches symmetrically and the tongue was midline with full range of motion. Sternocleidomastoid and trapezius were powerful. Muscle bulk and tone was normal. There was no arm drift or abnormal movement. Power was fairly full and symmetric in the upper and lower extremities. Reflexes were 1-2 over 4 at the elbows, but absent at knees and ankles. Toes were not upgoing. Coordination testing with [id number], [id number], fine motor and rapid alternating movements was well performed. The sensory exam was intact to pain, light touch, proprioception, graphesthesia, cold thermal and vibration. There was no extinction to double simultaneous stimulation. She is able to stand and bear weight. It seems somewhat unsteady with her walking. She had a limp and had complained of pain of her right knee with 8 steps. With balance support, she could stand on heels or toes, but not quite as well on the right heel. The Romberg stance was negative. Auscultation of the carotid arteries did not reveal a bruit. Heart rhythm was regular without a murmur. Peripheral pulses were symmetric. There was no edema or cyanosis of the extremities. LABORATORY DATA: CBC revealed a normal white blood cell count, but low hemoglobin 11.2, hematocrit 32.5. Platelet count was normal. Chemistries revealed low sodium of 133, low potassium at 3.4, chloride low at 96. BUN and creatinine were not elevated. GFR calculated at 70.5. Glucose was 109. Calcium was normal. Magnesium was low at 1.5. Liver enzymes were not elevated. CPK and troponin were not elevated. BNP was 88. Total protein and albumin were normal. Urine drug screen was positive for alcohol, but otherwise negative. Serum alcohol level was not detected. Urinalysis revealed bacteria, but was otherwise negative. PT/INR was [address] scan of the head was performed this morning revealing minimal bilateral deep white matter lucencies consistent with chronic small vessel disease. There was no acute process. Chest x-ray revealed no acute cardiopulmonary process. IMPRESSION: The patient is a 71-year-old woman who fell coming back from the bathroom. Her balance does seem poor. In the last several days, she has complained of much worsening right knee pain, which potentially could be contributing to the altered balance. She may be somewhat encephalopathic from the fall. I do not see definite evidence of stroke. The CAT scan did not reveal evidence of hemorrhage, but would not necessarily see an acute stroke. Her cognition is not quite back to normal where as she has impaired attention and concentration and difficulty following some instructions even though she is fully oriented. RECOMMENDATIONS: I will obtain some blood work to look for treatable causes of cognitive change. I will obtain an MRI brain without contrast to better look for stroke. She will need physical therapy to evaluate gait. She may require intervention for the right knee, but I will leave this up to the primary care physician. I appreciate being involved in her care. MARCOS COTTO MD DR: DIONE/judy JOB#: [id number] / [id number] Dr. KEN Angulo CHUNMEI MD
[2017-01-21] MEDS: TERBINAFINE 250 MG TABLET. PO SCH (09:00)
[2017-01-21] MEDS: OMEGA-3 FATTY ACIDS/FISH OIL 1,000 MG CAPSULE. PO SCH (09:03)
[2017-01-21] MEDS: THIAMINE 100 MG TABLET. PO SCH (09:03)
[2017-01-21] MEDS: ASPIRIN ENTERIC COATED 81 MG TABLET.DR. PO SCH (09:03)
[2017-01-21] MEDS: LISINOPRIL 40 MG TABLET. PO SCH (09:03)
[2017-01-21] MEDS: FOLIC ACID 1 MG TABLET. PO SCH (09:03)
[2017-01-21 11:37] VITALS: BP 136/70
--- NOTE | 2017-01-21 13:38 | PDOC ---
PROGRESS NOTES Assessment Problems Medical Problems: (1) Confusion Status: Acute - resolved (2) Fall Status: Acute -unclear etiology. I spoke with the at length. It was a large component of generalized weakness and severe confusion. This does make me concerned about a transient ischemic attack. The confusion was short-lived only lasting for a number of hours. Her baseline is normally very sharp without short -term memory loss or word finding difficulty. (3) TIA (transient ischemic attack) Status: Acute -I'm concerned after speaking with the that this may more likely have represented a transient ischemic attack. She is currently on aspirin and atorvastatin to address risk. (4) Weakness Status: Acute Plan 1. I have ordered a carotid Doppler to look for vascular stenosis and an echocardiogram to look for a cardioembolic source. She will continue with aspirin and atorvastatin. She refused the MRI of her brain because of claustrophobia. She is aware that we can offer medications but she still refuses. She is willing to do an open MRI which could potentially be arranged as an outpatient by her primary care physician. Subjective I was not confused. It was my who was confused. When can I get out of here? Objective Vital Signs Date Time Temp Pulse Resp B/P (MAP) Pulse Ox O2 Delivery O2 Flow Rate FiO2 01/21/17 11:37 99.0 80 19 136/70 (92) 95 99.0 01/21/17 08:05 Room Air PHYSICAL EXAM She was alert, awake and cooperative. Her speech was fluent and clear. She had a good fund of recent and remote knowledge that not of the particular spell. She did not have insight into confusion during her spell. The eyes were conjugate and face symmetric. Movements of the arms was symmetric and well coordinated. Review of Relevant I have reviewed the following items taylor (where applicable) has been applied. Labs Laboratory Tests Test 01/20/17 07:05 01/20/17 07:25 01/21/17 05:22 White Blood Count 6.4 x10^3/uL (4.0-11.0) 7.3 x10^3/uL (4.0-11.0) Red Blood Count 3.33 x10^6/uL (3.50-5.40) 3.21 x10^6/uL (3.50-5.40) Hemoglobin 11.2 g/dL (12.0-15.5) 10.8 g/dL (12.0-15.5) Hematocrit 32.5 % (36.0-47.0) 31.3 % (36.0-47.0) Mean Corpuscular Volume 97 fL (79-100) 98 fL (79-100) Mean Corpuscular Hemoglobin 34 pg (25-35) 34 pg (25-35) Mean Corpuscular Hemoglobin Concent 35 g/dL (31-37) 34 g/dL (31-37) Red Cell Distribution Width 13.0 % (11.5-14.5) 13.3 % (11.5-14.5) Platelet Count 255 x10^3/uL (140-400) 262 x10^3/uL (140-400) Neutrophils (%) (Auto) 76 % (31-73) 59 % (31-73) Lymphocytes (%) (Auto) 17 % (24-48) 29 % (24-48) Monocytes (%) (Auto) 6 % (0-9) 9 % (0-9) Eosinophils (%) (Auto) 0 % (0-3) 3 % (0-3) Basophils (%) (Auto) 0 % (0-3) 1 % (0-3) Neutrophils # (Auto) 4.9 x10^3uL (1.8-7.7) 4.3 x10^3uL (1.8-7.7) Lymphocytes # (Auto) 1.1 x10^3/uL (1.0-4.8) 2.1 x10^3/uL (1.0-4.8) Monocytes # (Auto) 0.4 x10^3/uL (0.0-1.1) 0.7 x10^3/uL (0.0-1.1) Eosinophils # (Auto) 0.0 x10^3/uL (0.0-0.7) 0.2 x10^3/uL (0.0-0.7) Basophils # (Auto) 0.0 x10^3/uL (0.0-0.2) 0.0 x10^3/uL (0.0-0.2) Prothrombin Time 12.4 SEC (11.7-14.0) Prothromb Time International Ratio 1.0 (0.8-1.1) Activated Partial Thromboplast Time 33 SEC (24-38) Sodium Level 133 mmol/L (136-145) 135 mmol/L (136-145) Potassium Level 3.4 mmol/L (3.5-5.1) 3.9 mmol/L (3.5-5.1) Chloride Level 96 mmol/L (98-107) 101 mmol/L (98-107) Carbon Dioxide Level 24 mmol/L (21-32) 27 mmol/L (21-32) Anion Gap 13 (6-14) 7 (6-14) Blood Urea Nitrogen 16 mg/dL (7-20) 14 mg/dL (7-20) Creatinine 0.8 mg/dL (0.6-1.0) 0.9 mg/dL (0.6-1.0) Estimated GFR (Cockcroft-Gault) 70.5 61.5 BUN/Creatinine Ratio 20 (6-20) Glucose Level 109 mg/dL (70-99) 94 mg/dL (70-99) Calcium Level 9.1 mg/dL (8.5-10.1) 8.6 mg/dL (8.5-10.1) Magnesium Level 1.5 mg/dL (1.8-2.4) Total Bilirubin 0.2 mg/dL (0.2-1.0) Aspartate Amino Transf (AST/SGOT) 20 U/L (15-37) Alanine Aminotransferase (ALT/SGPT) 21 U/L (14-59) Alkaline Phosphatase 82 U/L (46-116) Creatine Kinase 65 U/L (26-192) Creatine Kinase MB (Mass) 0.9 ng/mL (0.0-3.6) Creatine Kinase MB Relative Index % (0-4) Troponin I Quantitative < 0.017 ng/mL (0.000-0.055) DY-Omv-O-Type Natriuretic Peptide 88 pg/mL (0-124) Total Protein 7.4 g/dL (6.4-8.2) Albumin 3.7 g/dL (3.4-5.0) Albumin/Globulin Ratio 1.0 (1.0-1.7) Thyroid Stimulating Hormone (TSH) 6.198 uIU/mL (0.358-3.74) Free Thyroxine 0.77 ng/dL (0.76-1.46) Ethyl Alcohol Level < 10 mg/dL (0-10) Urine Collection Type Unknown Urine Color Yellow Urine Clarity Clear Urine pH 5.5 Urine Specific [place] 1.015 Urine Protein Negative mg/dL (NEG-TRACE) Urine Glucose (UA) Negative mg/dL (NEG) Urine Ketones (Stick) Negative mg/dL (NEG) Urine Blood Negative (NEG) Urine Nitrite Negative (NEG) Urine Bilirubin Negative (NEG) Urine Urobilinogen Dipstick 0.2 mg/dL (0.2 mg/dL) Urine Leukocyte Esterase Negative (NEG) Urine RBC 0 /HPF (0-2) Urine WBC 0 /HPF (0-4) Urine Squamous Epithelial Cells Few /LPF Urine Bacteria Many /HPF (0-FEW) Urine Opiates Screen Neg (NEG) Urine Methadone Screen Neg (NEG) Urine Barbiturates Neg (NEG) Urine Phencyclidine Screen Neg (NEG) Urine Amphetamine/Methamphetamine Neg (NEG) Urine Benzodiazepines Screen Neg (NEG) Urine Cocaine Screen Neg (NEG) Urine Cannabinoids Screen Neg (NEG) Urine Ethyl Alcohol Pos (NEG) Laboratory Tests Test 01/21/17 05:22 White Blood Count 7.3 x10^3/uL (4.0-11.0) Red Blood Count 3.21 x10^6/uL (3.50-5.40) Hemoglobin 10.8 g/dL (12.0-15.5) Hematocrit 31.3 % (36.0-47.0) Mean Corpuscular Volume 98 fL (79-100) Mean Corpuscular Hemoglobin 34 pg (25-35) Mean Corpuscular Hemoglobin Concent 34 g/dL (31-37) Red Cell Distribution Width 13.3 % (11.5-14.5) Platelet Count 262 x10^3/uL (140-400) Neutrophils (%) (Auto) 59 % (31-73) Lymphocytes (%) (Auto) 29 % (24-48) Monocytes (%) (Auto) 9 % (0-9) Eosinophils (%) (Auto) 3 % (0-3) Basophils (%) (Auto) 1 % (0-3) Neutrophils # (Auto) 4.3 x10^3uL (1.8-7.7) Lymphocytes # (Auto) 2.1 x10^3/uL (1.0-4.8) Monocytes # (Auto) 0.7 x10^3/uL (0.0-1.1) Eosinophils # (Auto) 0.2 x10^3/uL (0.0-0.7) Basophils # (Auto) 0.0 x10^3/uL (0.0-0.2) Sodium Level 135 mmol/L (136-145) Potassium Level 3.9 mmol/L (3.5-5.1) Chloride Level 101 mmol/L (98-107) Carbon Dioxide Level 27 mmol/L (21-32) Anion Gap 7 (6-14) Blood Urea Nitrogen 14 mg/dL (7-20) Creatinine 0.9 mg/dL (0.6-1.0) Estimated GFR (Cockcroft-Gault) 61.5 Glucose Level 94 mg/dL (70-99) Calcium Level 8.6 mg/dL (8.5-10.1) Microbiology 01/20/17 Urine Culture - Preliminary, Resulted 01/20/17 Urine Culture Result 1 (MAIKOL) - Preliminary, Resulted Medications Current Medications Sodium Chloride 1,000 ml @ 1,000 mls/hr 1X ONCE IV Last administered on 07:45; Start 01/20/17 at 07:45; Stop 01/20/17 at 08:44; Status DC Aspirin (Ecotrin) 81 mg DAILY PO Last administered on 01/21/17 09:03; Start 01/20/17 at 17:00 Atorvastatin Calcium (Lipitor) 20 mg HS PO Last administered on 01/20/17 21:39 ; Start 01/20/17 at 21:00 Lisinopril (Prinivil) 40 mg DAILY PO Last administered on 01/21/17 09:03; Start 01/20/17 at 17:00 Fish Oil (Fish Oil) 1,000 mg DAILY PO Last administered on 01/21/17 09:03; Start 01/20/17 at 17:00 Amitriptyline HCl (Amitriptyline HCl) 100 mg QHS PO Last administered on 21:39; Start 01/20/17 at 21:00 Acetaminophen (Tylenol) 650 mg PRN Q6HRS PRN PO FEVER; Start 01/20/17 at 16:30 Ondansetron HCl (Zofran) 4 mg PRN Q6HRS PRN IV NAUSEA/VOMITING; Start 01/20/17 at 16:30 Morphine Sulfate 2 mg PRN Q2HR PRN IV PAIN; Start 01/20/17 at 16:30 Tramadol HCl (Ultram) 50 mg PRN Q6HRS PRN PO PAIN; Start 01/20/17 at 16:30 Hydralazine HCl (Apresoline) 10 mg PRN Q4HRS PRN IVP ELEVATED BP, SEE COMMENTS ; Start 01/20/17 at 16:30 Docusate Sodium (Colace) 100 mg PRN DAILY PRN PO CONSTIPATION; Start 01/20/17 at 16:30 Enoxaparin Sodium (Lovenox 40mg Syringe) 40 mg Q24H SQ ; Start 01/20/17 at 17:00 Potassium Chloride (Klor-Con) 40 meq 1X ONCE PO Last administered on 17:07; Start 01/20/17 at 16:30; Stop 01/20/17 at 16:34; Status DC Magnesium Sulfate/ Dextrose 50 ml @ 25 mls/hr 1X ONCE IV Last administered on 01/20/17 17:06; Start 01/20/17 at 16:30; Stop 01/20/17 at 18:29; Status DC Lorazepam (Ativan) 2 mg PRN Q4HRS PRN IV ANXIETY / AGITATION; Start 01/20/17 at 16:30 Thiamine Mononitrate (Vitamin B-1) 100 mg DAILY PO Last administered on 09:03; Start 01/20/17 at 17:00 Folic Acid (Folic Acid) 1 mg DAILY PO Last administered on 01/21/17 09:03; Start 01/20/17 at 17:00 Terbinafine HCl (LamISIL) 250 mg DAILY PO Last administered on 01/21/17 09:00 ; Start 01/20/17 at 17:00 Active Scripts Active Reported Atorvastatin Calcium 20 Mg Tablet 20 Mg PO HS Lamisil (Terbinafine Hcl) 250 Mg Tablet 1 Tab PO DAILY Aspir 81 (Aspirin) 81 Mg Tablet.dr 1 Tab PO DAILY Fish Oil 1,000 Mg Capsule ([place]-3 Fatty Acids/Fish Oil) 1 Each Capsule 1 Each PO Anaprox Ds (Naproxen Sodium) 550 Mg Tablet 1 Tab PO BID Amitriptyline Hcl 100 Mg Tablet 1 Tab PO QHS Estradiol 0.5 Mg Tablet 0.5 Mg PO Hydrochlorothiazide Tablet (Hydrochlorothiazide) 25 Mg Tablet 1 Tab PO DAILY Lisinopril 40 Mg Tablet 1 Tab PO DAILY Vitals/I & O Vital Sign - Last 24 Hours 01/20/17 01/20/17 01/20/17 01/20/17 15:21 17:07 19:00 19:58 Temp 98.1 98.4 98.1 98.4 Pulse 106 106 89 Resp 16 18 B/P (MAP) 113/65 (81) 113/65 127/71 (89) Pulse Ox 95 O2 Delivery Room Air Room Air 01/20/17 01/21/17 01/21/17 01/21/17 23:00 03:00 07:04 08:05 Temp 98.0 98.4 98.2 98.0 98.4 98.2 Pulse 100 89 89 Resp 16 16 18 B/P (MAP) 148/82 (104) 122/72 (89) 138/72 (94) Pulse Ox 98 93 94 O2 Delivery Room Air Room Air 01/21/17 01/21/17 09:03 11:37 Temp 99.0 99.0 Pulse 89 80 Resp 19 B/P (MAP) 138/72 136/70 (92) Pulse Ox 95 MARCOS COTTO MD Jan 21, 2017 13:38
[2017-01-21 15:04] VITALS: BP 134/70
--- NOTE | 2017-01-21 16:17 | RAD ---
Carotid ultrasound, 01/21/2017: History: TIA Duplex evaluation of the carotid arteries in the neck was performed including grayscale, color-flow and spectral Doppler analysis. There is minimal atherosclerotic plaquing at both carotid bifurcations. The proximal internal carotid arteries are tortuous bilaterally. The peak systolic velocity in the left internal carotid artery is 87 cm/s with end-diastolic velocity of 33 cm/s. The internal carotid to common carotid artery ratio is 1.2. The peak systolic velocity in the right internal carotid artery is 89 cm per sec with an end-diastolic velocity of 31 cm/s. The internal carotid to common carotid artery ratio is 1.4. These Doppler findings suggest narrowing in the 0-50% diameter range. Antegrade flow is present in both vertebral arteries in the neck. IMPRESSION: Minimal atherosclerotic plaquing at both carotid bifurcations with underlying luminal narrowing in the 0-50% diameter range bilaterally. Note: Stenosis calculations for CTA, MRA and conventional angiography are based upon determination of the distal ICA diameter in accordance with the NASCET methodology. Stenosis calculations for Doppler studies are derived from validated velocity criteria which are known to correlate with NASCET methodology of determining stenosis.
[2017-01-21] MEDS: ENOXAPARIN 40 MG/0.4 ML SYRINGE. SQ SCH (17:00)
--- NOTE | 2017-01-21 17:51 | PDOC ---
PROGRESS NOTES Chief Complaint Chief Complaint AMS ASSESSMENT AND PLAN: 1. Confusion: appears resolved. appreciate Dr Loza's input: complete W/ U while in house MRI, with ativan sedation, echo w/ bubble study) 2. Gait instability: chronic; previous falls. OT/PT eval 3. OA: R knee pain 4. HTN: well controlled on current regimen 5. Hypokalemia/hypomagnesemia: replete, monitor. hold HCTZ 6. ?EtOH abuse: incongruent results with pos urine/neg blood screen. monitor for W/D sx 7. Anemia: mild, borderline macrocytosis. b12, folate pending 8. Prophylaxis: lovenox History of Present Illness History of Present Illness feels great, wants to go home Vitals Vitals Vital Signs Date Time Temp Pulse Resp B/P (MAP) Pulse Ox O2 Delivery O2 Flow Rate FiO2 01/21/17 15:04 98.9 81 19 134/70 (91) 95 98.9 01/21/17 08:05 Room Air Physical Exam General: Alert, Oriented X3, Cooperative Heart: Regular rate Lungs: Clear Abdomen: Normal bowel sounds, No tenderness Extremities: No edema Skin: No rashes Labs LABS Laboratory Tests Test 01/21/17 05:22 White Blood Count 7.3 x10^3/uL (4.0-11.0) Red Blood Count 3.21 x10^6/uL (3.50-5.40) Hemoglobin 10.8 g/dL (12.0-15.5) Hematocrit 31.3 % (36.0-47.0) Mean Corpuscular Volume 98 fL (79-100) Mean Corpuscular Hemoglobin 34 pg (25-35) Mean Corpuscular Hemoglobin Concent 34 g/dL (31-37) Red Cell Distribution Width 13.3 % (11.5-14.5) Platelet Count 262 x10^3/uL (140-400) Neutrophils (%) (Auto) 59 % (31-73) Lymphocytes (%) (Auto) 29 % (24-48) Monocytes (%) (Auto) 9 % (0-9) Eosinophils (%) (Auto) 3 % (0-3) Basophils (%) (Auto) 1 % (0-3) Neutrophils # (Auto) 4.3 x10^3uL (1.8-7.7) Lymphocytes # (Auto) 2.1 x10^3/uL (1.0-4.8) Monocytes # (Auto) 0.7 x10^3/uL (0.0-1.1) Eosinophils # (Auto) 0.2 x10^3/uL (0.0-0.7) Basophils # (Auto) 0.0 x10^3/uL (0.0-0.2) Sodium Level 135 mmol/L (136-145) Potassium Level 3.9 mmol/L (3.5-5.1) Chloride Level 101 mmol/L (98-107) Carbon Dioxide Level 27 mmol/L (21-32) Anion Gap 7 (6-14) Blood Urea Nitrogen 14 mg/dL (7-20) Creatinine 0.9 mg/dL (0.6-1.0) Estimated GFR (Cockcroft-Gault) 61.5 Glucose Level 94 mg/dL (70-99) Calcium Level 8.6 mg/dL (8.5-10.1) ALEXANDRA BOND MD Jan 21, 2017 17:51
[2017-01-21] MEDS: ATORVASTATIN CALCIUM 20 MG TABLET PO SCH (19:52)
[2017-01-21] MEDS: AMITRIPTYLINE HCL 50 MG TABLET PO SCH (19:53)
[2017-01-21 19:56] VITALS: BP 134/77
[2017-01-21 23:29] VITALS: BP 142/78
[2017-01-22 03:53] VITALS: BP 96/63
[2017-01-22 06:57] VITALS: BP 150/83
[2017-01-22] MEDS: TERBINAFINE 250 MG TABLET. PO SCH (09:00)
[2017-01-22] MEDS: FOLIC ACID 1 MG TABLET. PO SCH (09:00)
[2017-01-22] MEDS: LISINOPRIL 40 MG TABLET. PO SCH (09:00)
[2017-01-22] MEDS: THIAMINE 100 MG TABLET. PO SCH (09:00)
[2017-01-22] MEDS: ASPIRIN ENTERIC COATED 81 MG TABLET.DR. PO SCH (09:00)
[2017-01-22] MEDS: OMEGA-3 FATTY ACIDS/FISH OIL 1,000 MG CAPSULE. PO SCH (09:00)
[2017-01-22 09:14] LABS: FOLATE 20.7 ng/ml (3.2-20.0)
[2017-01-22 10:50] VITALS: BP 151/82
--- NOTE | 2017-01-22 13:59 | PDOC ---
PROGRESS NOTES Chief Complaint Chief Complaint AMS ASSESSMENT AND PLAN: 1. Confusion: appears resolved. appreciate Dr Loza's input: complete W/ U while in house: MRI, with ativan sedation, echo w/ bubble study. MRi not scheduled til 4PM; with ativan dose, may delay d/c til AM if somnolent 2. Gait instability: chronic; previous falls. OT/PT recommendation for home services 3. OA: R knee pain chronic 4. HTN: well controlled on current regimen 5. Hypokalemia/hypomagnesemia: replete, monitor. hold HCTZ 6. ?EtOH abuse: incongruent results with pos urine/neg blood screen. monitor for W/D sx 7. Anemia: mild, borderline macrocytosis. b12, folate pending 8. Prophylaxis: lovenox History of Present Illness History of Present Illness anticipatory anxiety re MRI. no other c/o Vitals Vitals Vital Signs Date Time Temp Pulse Resp B/P (MAP) Pulse Ox O2 Delivery O2 Flow Rate FiO2 01/22/17 10:50 98.0 79 20 151/82 (105) 98 Room Air 98.0 Physical Exam General: Alert, Oriented X3, Cooperative Heart: Regular rate Lungs: Clear Abdomen: Normal bowel sounds, No tenderness Extremities: No edema Skin: No rashes Comment Review of Relevant I have reviewed the following items taylor (where applicable) has been applied. Labs Laboratory Tests Test 01/20/17 15:45 01/21/17 05:22 Vitamin B12 Level 520 pg/mL (247-911) Serum Folate 20.70 ng/ml (3.2-20.0) White Blood Count 7.3 x10^3/uL (4.0-11.0) Red Blood Count 3.21 x10^6/uL (3.50-5.40) Hemoglobin 10.8 g/dL (12.0-15.5) Hematocrit 31.3 % (36.0-47.0) Mean Corpuscular Volume 98 fL (79-100) Mean Corpuscular Hemoglobin 34 pg (25-35) Mean Corpuscular Hemoglobin Concent 34 g/dL (31-37) Red Cell Distribution Width 13.3 % (11.5-14.5) Platelet Count 262 x10^3/uL (140-400) Neutrophils (%) (Auto) 59 % (31-73) Lymphocytes (%) (Auto) 29 % (24-48) Monocytes (%) (Auto) 9 % (0-9) Eosinophils (%) (Auto) 3 % (0-3) Basophils (%) (Auto) 1 % (0-3) Neutrophils # (Auto) 4.3 x10^3uL (1.8-7.7) Lymphocytes # (Auto) 2.1 x10^3/uL (1.0-4.8) Monocytes # (Auto) 0.7 x10^3/uL (0.0-1.1) Eosinophils # (Auto) 0.2 x10^3/uL (0.0-0.7) Basophils # (Auto) 0.0 x10^3/uL (0.0-0.2) Sodium Level 135 mmol/L (136-145) Potassium Level 3.9 mmol/L (3.5-5.1) Chloride Level 101 mmol/L (98-107) Carbon Dioxide Level 27 mmol/L (21-32) Anion Gap 7 (6-14) Blood Urea Nitrogen 14 mg/dL (7-20) Creatinine 0.9 mg/dL (0.6-1.0) Estimated GFR (Cockcroft-Gault) 61.5 Glucose Level 94 mg/dL (70-99) Calcium Level 8.6 mg/dL (8.5-10.1) Microbiology 01/20/17 Urine Culture - Preliminary, Resulted 01/20/17 Urine Culture Result 1 (MAIKOL) - Preliminary, Resulted Medications Current Medications Sodium Chloride 1,000 ml @ 1,000 mls/hr 1X ONCE IV Last administered on 07:45; Start 01/20/17 at 07:45; Stop 01/20/17 at 08:44; Status DC Aspirin (Ecotrin) 81 mg DAILY PO Last administered on 01/22/17 09:00; Start 01/20/17 at 17:00 Atorvastatin Calcium (Lipitor) 20 mg HS PO Last administered on 01/21/17 19:52 ; Start 01/20/17 at 21:00 Lisinopril (Prinivil) 40 mg DAILY PO Last administered on 01/22/17 09:00; Start 01/20/17 at 17:00 Fish Oil (Fish Oil) 1,000 mg DAILY PO Last administered on 01/22/17 09:00; Start 01/20/17 at 17:00 Amitriptyline HCl (Amitriptyline HCl) 100 mg QHS PO Last administered on 19:53; Start 01/20/17 at 21:00 Acetaminophen (Tylenol) 650 mg PRN Q6HRS PRN PO FEVER; Start 01/20/17 at 16:30 Ondansetron HCl (Zofran) 4 mg PRN Q6HRS PRN IV NAUSEA/VOMITING; Start 01/20/17 at 16:30 Morphine Sulfate 2 mg PRN Q2HR PRN IV PAIN; Start 01/20/17 at 16:30 Tramadol HCl (Ultram) 50 mg PRN Q6HRS PRN PO PAIN; Start 01/20/17 at 16:30 Hydralazine HCl (Apresoline) 10 mg PRN Q4HRS PRN IVP ELEVATED BP, SEE COMMENTS ; Start 01/20/17 at 16:30 Docusate Sodium (Colace) 100 mg PRN DAILY PRN PO CONSTIPATION; Start 01/20/17 at 16:30 Enoxaparin Sodium (Lovenox 40mg Syringe) 40 mg Q24H SQ ; Start 01/20/17 at 17:00 Potassium Chloride (Klor-Con) 40 meq 1X ONCE PO Last administered on 17:07; Start 01/20/17 at 16:30; Stop 01/20/17 at 16:34; Status DC Magnesium Sulfate/ Dextrose 50 ml @ 25 mls/hr 1X ONCE IV Last administered on 01/20/17 17:06; Start 01/20/17 at 16:30; Stop 01/20/17 at 18:29; Status DC Lorazepam (Ativan) 2 mg PRN Q4HRS PRN IV ANXIETY / AGITATION; Start 01/20/17 at 16:30 Thiamine Mononitrate (Vitamin B-1) 100 mg DAILY PO Last administered on 09:00; Start 01/20/17 at 17:00 Folic Acid (Folic Acid) 1 mg DAILY PO Last administered on 01/22/17 09:00; Start 01/20/17 at 17:00 Terbinafine HCl (LamISIL) 250 mg DAILY PO Last administered on 01/22/17 09:00 ; Start 01/20/17 at 17:00 Lorazepam (Ativan) 1 mg 1X ONCE IV ; Start 01/21/17 at 18:00; Stop 01/21/17 at 18:01; Status DC Active Scripts Active Reported Atorvastatin Calcium 20 Mg Tablet 20 Mg PO HS Lamisil (Terbinafine Hcl) 250 Mg Tablet 1 Tab PO DAILY Aspir 81 (Aspirin) 81 Mg Tablet.dr 1 Tab PO DAILY Fish Oil 1,000 Mg Capsule ([place]-3 Fatty Acids/Fish Oil) 1 Each Capsule 1 Each PO Anaprox Ds (Naproxen Sodium) 550 Mg Tablet 1 Tab PO BID Amitriptyline Hcl 100 Mg Tablet 1 Tab PO QHS Estradiol 0.5 Mg Tablet 0.5 Mg PO Hydrochlorothiazide Tablet (Hydrochlorothiazide) 25 Mg Tablet 1 Tab PO DAILY Lisinopril 40 Mg Tablet 1 Tab PO DAILY Vitals/I & O Vital Sign - Last 24 Hours 01/21/17 01/21/17 01/21/17 01/21/17 15:04 19:56 20:15 23:29 Temp 98.9 98.1 98.2 98.9 98.1 98.2 Pulse 81 86 81 Resp 19 16 16 B/P (MAP) 134/70 (91) 134/77 (96) 142/78 (99) Pulse Ox 95 96 96 O2 Delivery Room Air Room Air Room Air 01/22/17 01/22/17 01/22/17 01/22/17 03:53 06:57 08:00 09:00 Temp 98.6 98.2 98.6 98.2 Pulse 77 71 71 Resp 16 18 B/P (MAP) 96/63 (74) 150/83 (105) 150/83 Pulse Ox 96 97 O2 Delivery Room Air Room Air Room Air 01/22/17 10:50 Temp 98.0 98.0 Pulse 79 Resp 20 B/P (MAP) 151/82 (105) Pulse Ox 98 O2 Delivery Room Air ALEXANDRA BOND MD Jan 22, 2017 13:59
[2017-01-22 14:58] VITALS: BP 155/90
--- NOTE | 2017-01-22 15:13 | CARD ---
APPROVED REPORT EXAM: Two-dimensional and M-mode echocardiogram with Doppler and color Doppler. Other Information Quality : Good INDICATION CVA/TIA Echo Enhancing Agent Agent/Amount Used: Agitated Saline 8mL 2D DIMENSIONS RVDd2.0 (2.9-3.5cm)Left Atrium(2D)3.2 (1.6-4.0cm) IVSd1.3 (0.7-1.1cm)Aortic Root(2D)2.7 (2.0-3.7cm) LVDd4.0 (3.9-5.9cm)LVOT Diameter2.0 (1.8-2.4cm) PWd1.3 (0.7-1.1cm)LVDs2.9 (2.5-4.0cm) FS (%) 27.6 %SV38.7 ml LVEF(%)55.0 (>50%) Aortic Valve AoV Peak Darin.134.5cm/sAoV VTI27.0cm AO Peak GR.7.2mmHgLVOT Peak Darin.103.0cm/s AO Mean GR.4mmHgAVA (VMAX)2.34cm2 GLENDY (VTI)2.40cm2 Mitral Valve MV E Hpydwovs24.7cm/sMV DECEL RPLB325en MV A Jebnfkwe015.0cm/sE/A Ratio0.8 Tricuspid Valve TR P. Twytqrqt019ku/sRAP SJETDWTF9fpCk TR Peak Gr.83zxPzVAOV75ruTr Pulmonary Vein S1 Izwspyfa82.9cm/sD2 Mwmpikkt19.2cm/s LEFT VENTRICLE The left ventricle is normal size. There is mild concentric left ventricular hypertrophy. The left ve ntricular systolic function is normal and the ejection fraction is within normal range. The Ejection Fraction is 55-60%. There is normal LV segmental wall motion. Transmitral Doppler flow pattern is Gra de I-abnormal relaxation pattern. RIGHT VENTRICLE The right ventricle is normal size. The right ventricular systolic function is normal. ATRIA The left atrium size is normal. The right atrium size is normal. The interatrial septum is intact wit h no evidence for an atrial septal defect or patent foramen ovale as noted on 2-D or Doppler imaging. Injection of bubbles documented no interatrial shunt. AORTIC VALVE The aortic valve is calcified but opens well. Doppler and Color Flow revealed trace aortic regurgitat ion. There is no significant aortic valvular stenosis. MITRAL VALVE The mitral valve is calcified but opens well. Mitral annular calcification is mild. There is no evide nce of mitral valve prolapse. There is no mitral valve stenosis. Doppler and Color-flow revealed mild mitral regurgitation. TRICUSPID VALVE The tricuspid valve is normal in structure and function. Doppler and Color Flow revealed trace tricus pid regurgitation. The PA pressure was estimated at 33 mmHg. There is no tricuspid valve stenosis. PULMONIC VALVE The pulmonary valve is normal in structure and function. Doppler and Color Flow revealed no pulmonic valvular regurgitation. There is no pulmonic valvular stenosis. GREAT VESSELS The aortic root is normal in size. The ascending aorta is normal in size. The IVC is normal in size a nd collapses >50% with inspiration. PERICARDIAL EFFUSION There is no evidence of significant pericardial effusion. Critical Notification Critical Value: No <Conclusion> The left ventricular systolic function is normal and the ejection fraction is within normal range. The Ejection Fraction is 55-60%. There is mild concentric left ventricular hypertrophy. The interatrial septum is intact with no evidence for an atrial septal defect or patent foramen ovale as noted on 2-D or Doppler imaging. Injection of bubbles documented no interatrial shunt. There is no significant aortic valvular stenosis. Doppler and Color Flow revealed trace aortic regurgitation. Doppler and Color-flow revealed mild mitral regurgitation. Doppler and Color Flow revealed trace tricuspid regurgitation. The PA pressure was estimated at 33 mmHg.
--- NOTE | 2017-01-22 16:14 | PDOC ---
PROGRESS NOTES Assessment Assessment IMPRESSION: Metabolic encephalopathy. Confusion. Fall. Near syncope. HTN Substance use/abuse, alcohol. RECOMMENDATIONS/PLAN: Continue ASA daily. Continue Lipitor 20 mg HS. Brain MRI pending due to claustrophobia. Lab: see orders. Past Medical History Hypertension HRT, sleep disorder Past Surgical History Cholecystectomy, Hysterectomy Family History Hypertension Social History Smoke: <1 pack per day ALCOHOL: heavy (pt said drinks at lease 3 times a week, denies daily, said only 100cc wine or vodka each time) ALLERGY: Reviewed. MEDICATIONS: Refer to [facility] REVIEW OF SYSTEMS: Constitutional: No malnutrition, cachexia. Head: No traumatic brain or head injury. Skin: No edema, or rash. Ear: No infection. Eyes: No vision loss, or diplopia. Nose: No bleeding or purulent discharges. Hearing: No hearing decrease. Neck: No injury. Breast: No history of cancer, masses, or discharges. Cardiac: HLD Pulmonary: No COPD. GI: No GI Ulcer, GI bleeding Urinary/genital: UTI. Endocrine: No cousin face, craniofacial dysmorphism, polydactyly. Skeletomuscular: fall.. Neurological: see HP. Psychiatric: Denies drug use/abuse. Otherwise, not [id number] review of systems. PHYSICAL EXAMINATION: General appearance in no acute distress. HEENT: Normocephalic and nontraumatic. Eyes, nose, ears, and throat are unremarkable. Hearing decrease. Neck is supple. No lymphadenopathy. No bruits are heard over the carotid artery. No Crepitus. Cardiovascular: S1, S2, regular rate and rhythm. Pulmonary: Clear to auscultation bilaterally. Abdomen: Bowel sounds are positive. Abdomen is soft, nontender, and nondistended. Extremities: No rash, lesions, or edema. No restriction of range of motion NEUROLOGICAL EXAMINATION: Alert. Oriented to time, place and person. PERRL. EOMI. CN: no focal findings. Muscle tone: within normal. Muscle strength: 5- DTR: 2 Plantar reflex: Flexor response bilaterally Gait: At baseline normal. Sensory exam: no abnormal findings. No cerebellar signs elicited. F-T-N test accurate. Objective Objective Vital Signs Date Time Temp Pulse Resp B/P (MAP) Pulse Ox O2 Delivery O2 Flow Rate FiO2 01/22/17 14:58 98.1 80 19 155/90 (111) 96 Room Air 98.1 Vitals Signs Vitals VS - Last 72 Hours, by Label Date Time Temp Pulse Resp B/P (MAP) Pulse Ox O2 Delivery O2 Flow Rate FiO2 01/22/17 14:58 98.1 80 19 155/90 (111) 96 Room Air 98.1 01/22/17 10:50 98.0 79 20 151/82 (105) 98 Room Air 98.0 01/22/17 09:00 71 150/83 01/22/17 08:00 Room Air 01/22/17 06:57 98.2 71 18 150/83 (105) 97 Room Air 98.2 01/22/17 03:53 98.6 77 16 96/63 (74) 96 Room Air 98.6 01/21/17 23:29 98.2 81 16 142/78 (99) 96 Room Air 98.2 01/21/17 20:15 Room Air 01/21/17 19:56 98.1 86 16 134/77 (96) 96 Room Air 98.1 01/21/17 15:04 98.9 81 19 134/70 (91) 95 98.9 01/21/17 11:37 99.0 80 19 136/70 (92) 95 99.0 01/21/17 09:03 89 138/72 01/21/17 08:05 Room Air 01/21/17 07:04 98.2 89 18 138/72 (94) 94 98.2 Laboratory Laboratory Microbiology 01/20/17 Urine Culture - Final, Complete 01/20/17 Urine Culture Result 1 (MAIKOL) - Final, Complete Medication Medications Current Medications Lorazepam (Ativan) 1 mg 1X ONCE IV Last administered on 01/22/17t 15:39; Start 01/21/17 at 18:00; Stop 01/21/17 at 18:01; Status DC Comment Review of Relevant I have reviewed the following items taylor (where applicable) has been applied. BEATRIZ DOMINGUEZ MD Jan 22, 2017 16:14
[2017-01-22] MEDS: ENOXAPARIN 40 MG/0.4 ML SYRINGE. SQ SCH (17:00)
--- NOTE | 2017-01-22 17:00 | RAD ---
MRI Brain without contrast History: Mental status change, weakness Technique: Multiplanar, multisequential noncontrast MR imaging was performed of the brain. Contrast: None Comparison: None Findings: There is motion degradation.There is no evidence of an acute infarct or cytotoxic edema. Ventricular size is within normal limits. There is [id number]-iy-oqhfshrs generalized supratentorial atrophy.There is no significant midline shift, intra-axial mass effect, or focal abnormal extra-axial fluid collection. There is multifocal [id number] T2 and FLAIR hyperintense signal abnormality of the supratentorial white matter bilaterally greatest of the frontal parietal lobes. There is small old lacunar infarct of the right guerrero radiata. There is preservation of the major intracranial flow-voids at the skull base. The mastoid air cells are aerated. The cerebellar tonsils are normal in location. There is no significant abnormality of the pineal gland or pituitary gland. There is complete opacification left maxillary sinus. There is preserved marrow signal of the clivus. There is grade 1 anterior spondylolisthesis C2-3. There is degenerative disc disease of the visualized C2-3 and C3-4 levels. There is likely mild spinal stenosis C3-4. Impression: 1. There is no evidence of recent infarct or intracranial mass effect. 2. 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 Scattered T2 and FLAIR hyperintense abnormality of the supratentorial white matter is nonspecific, probably due to chronic microvascular ischemic disease in a patient this age. 3. There is complete opacification of the left maxillary sinus. Electronically signed by: Fox West MD (01/22/2017 4:57 PM) [id number]
--- NOTE | 2017-02-01 12:39 | PDOC3 ---
Discharge Summary Visit Information Date of Admission: Jan 20, 2017 Date of Discharge: Jan 22, 2017 Admitting Diagnosis: tia w. fall Final Diagnosis 1. Confusion: appears resolved. appreciate Dr Loza's input: complete W/ U while in house: 2. Gait instability: chronic; previous falls. OT/PT recommendation for home services 3. OA: R knee pain chronic 4. HTN: well controlled on current regimen 5. Hypokalemia/hypomagnesemia: replete, monitor. hold HCTZ 6. ?EtOH abuse: incongruent results with pos urine/neg blood screen. monitor for W/D sx 7. Anemia: mild, borderline macrocytosis. b12, folate pending 8. Prophylaxis: lovenox Problems Medical Problems: (1) Confusion Status: Acute (2) Fall Status: Acute (3) TIA (transient ischemic attack) Status: Acute (4) Weakness Status: Acute Brief Hospital Course Allergies Allergies Coded Allergies Type Severity Reaction Last Updated Verified No Known Drug Allergies 01/20/17 No Brief Hospital Course Ms. Muniz is a 71 old admit by EMS, confused s/p a fall at night in the bathroom Neuro eval, w/u TIA pt imrpoved ECHO The left ventricular systolic function is normal and the ejection fraction is within normal range. The Ejection Fraction is 55-60%. MRI Impression: 1. There is no evidence of recent infarct or intracranial mass effect. 2. 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 Scattered T2 and FLAIR hyperintense abnormality of the supratentorial white matter is nonspecific, probably due to chronic microvascular ischemic disease in a patient this age. 3. There is complete opacification of the left maxillary sinus. Carotid IMPRESSION: Minimal atherosclerotic plaquing at both carotid bifurcations with underlying luminal narrowing in the 0-50% diameter range bilaterally. Discharge Information Condition at Discharge: Improved Follow Up: Weeks Disposition/Orders: D/C to Home Scheduled Amitriptyline Hcl (Amitriptyline Hcl), 1 TAB PO QHS, (Reported) Aspirin (Aspir 81), 1 TAB PO DAILY, (Reported) Atorvastatin Calcium (Atorvastatin Calcium), 20 MG PO HS, (Reported) Hydrochlorothiazide (Hydrochlorothiazide Tablet ), 1 TAB PO DAILY, (Reported) Lisinopril (Lisinopril), 1 TAB PO DAILY, (Reported) Naproxen Sodium (Anaprox Ds), 1 TAB PO BID, (Reported) Terbinafine Hcl (Lamisil), 1 TAB PO DAILY, (Reported) Miscellaneous Medications Estradiol (Estradiol), 0.5 MG PO, (Reported) [place]-3 Fatty Acids/Fish Oil (Fish Oil 1,000 Mg Capsule), 1 EACH PO, (Reported) Patient Instructions Patient Instructions < 30 min MARIA INES CORTEZ MD Feb 01, 2017 12:39
== END 2017-01-22 19:30 | disposition home or self-care (01) | DRG 71 ==
LOC: ER 06:52 → 6 SOUTH 09:33
PROVIDERS: ADMIT Internal Medicine; ATTEND Internal Medicine
DX: G93.41 Metabolic encephalopathy (principal); G45.9 Transient cerebral ischemic attack, unspecified; E83.42 Hypomagnesemia; E87.6 Hypokalemia; W18.39XA Other fall on same level, initial encounter; G47.9 Sleep disorder, unspecified; F10.10 Alcohol abuse, uncomplicated; F17.210 Nicotine dependence, cigarettes, uncomplicated; F40.240 Claustrophobia; I10 Essential (primary) hypertension; M17.11 Unilateral primary osteoarthritis, right knee; Z79.890 Hormone replacement therapy; Z80.1 Family history of malignant neoplasm of trachea, bronchus and lung; Z82.49 Family history of ischemic heart disease and other diseases of the circulatory system; Z90.710 Acquired absence of both cervix and uterus; Z91.81 History of falling; Y93.89 Activity, other specified; Y99.8 Other external cause status; Y92.091 Bathroom in other non-institutional residence as the place of occurrence of the external cause
CPT/HCPCS: 99285; C8929; 36415; 70450; 70551; 71010; 80048; 80053; 80307; 81001; 82553; 82607; 82746; 83735; 83880; 84439; 84443; 84484; 85025; 85610; 85730; 86593; 87086; 93005; 93880; 96360; G0480; J1650; J2060; J7030; J7060; 97110; 97112; 97116; G0479

== ENCOUNTER → 2020-11-16 | Outpatient (CLI) | payer MEDICARE, OTHER ==
[~2020-11-16] MED LIST changes: +ASPI-482 PO; +ATOR20TA58 PO; +HYDR-2145 PO; -HYDR25TA9 PO; +LISI-130 PO; -LISI40TA PO; +TERB250T PO
[2020-11-16 17:04] LABS: BASO # 0.1 x10^3/uL (0.0-0.2); BASO % 1 % (0-3); EOS # 0.2 x10^3/uL (0.0-0.7); EOS % 1 % (0-3); HEMATOCRIT 25.5 % (36.0-47.0); HEMOGLOBIN 9.2 g/dL (12.0-15.5); LYMPH # 3.8 x10^3/uL (1.0-4.8); LYMPH % 26 % (24-48); MEAN CORPUSCULAR HEMOGLOBIN 38 pg (25-35); MEAN CORPUSCULAR HGB CONC 36 g/dL (31-37); MEAN CORPUSCULAR VOLUME 105 fL (79-100); MONO # 0.8 x10^3/uL (0.0-1.1); MONO % 6 % (0-9); NEUT # 9.4 x10^3/uL (1.8-7.7); PLATELET COUNT 506 x10^3/uL (140-400); RED BLOOD COUNT 2.44 x10^6/uL (3.50-5.40); RED CELL DISTRIBUTION WIDTH 14.2 % (11.5-14.5); WHITE BLOOD COUNT 14.3 x10^3/uL (4.0-11.0)
[2020-11-17 14:13] LABS: IMMUNOGLOBULIN A 160 mg/dL (64-422); IMMUNOGLOBULIN G 1012 mg/dL (586-1602); IMMUNOGLOBULIN M 182 mg/dL (26-217)
[2020-11-17 15:13] LABS: KAPPA FREE 30.3 mg/L (3.3-19.4); LAMBDA FREE 21.6 mg/L (5.7-26.3)
[2020-11-17 20:08] LABS: ALBUM 3.7 g/dL (2.9-4.4); ALPHA 1 0.2 g/dL (0.0-0.4); ALPHA 2 0.5 g/dL (0.4-1.0); GAMMA 1.2 g/dL (0.4-1.8); PROTEIN TOTAL 6.6 g/dL (6.0-8.5); SPEP AG RATIO 1.3 (0.7-1.7)
[2020-11-19 11:42] LABS: NEUT % 66 % (31-73)
== END ==
LOC: ONCLAB 15:14
PROVIDERS: ATTEND Internal Medicine Hematology & Oncology
DX: D53.1 Other megaloblastic anemias, not elsewhere classified (principal); Z79.899 Other long term (current) drug therapy
CPT/HCPCS: 81270; 82525; 82784; 83520; 84165; 84443; 85025; 85045; 86334